=== PATIENT | female | born 1930 | race Caucasian/White ===

== ENCOUNTER 2018-01-25 12:30 | Emergency (ER) | payer MEDICARE, OTHER ==
[~2018-01-25] VITALS: Ht 157.5 cm; Wt 61.8 kg
[~2018-01-25 12:30] MED LIST: ASPI-611; DRON400T6 PO; ESOM40CA PO; HYDR-4069 PO; LEVO250T2 PO; POTA20TA19 PO; RES15C PO; ZOC5T PO; [UNRECOGNIZED DRUG - CODE] PO; home oxygen
[2018-01-25 15:42] VITALS: BP 145/89
== END 2018-01-25 15:43 | disposition home or self-care (01) ==
LOC: ER 12:31
DX: S16.1XXA Strain of muscle, fascia and tendon at neck level, initial encounter (principal); I48.91 Unspecified atrial fibrillation; E78.00 Pure hypercholesterolemia, unspecified; I12.9 Hypertensive chronic kidney disease with stage 1 through stage 4 chronic kidney disease, or unspecified chronic kidney disease; N18.9 Chronic kidney disease, unspecified; Z98.890 Other specified postprocedural states; Z79.82 Long term (current) use of aspirin; Z79.899 Other long term (current) drug therapy; V49.88XA Car occupant (driver) (passenger) injured in other specified transport accidents, initial encounter; Y93.89 Activity, other specified; Y92.413 State road as the place of occurrence of the external cause; Y99.9 Unspecified external cause status
CPT/HCPCS: 72125; 99284; L0172